=== PATIENT | male | born 1995 | race African-American/Black ===

== ENCOUNTER 2017-01-15 02:45 | Emergency (ER) | payer OTHER ==
[~2017-01-15] VITALS: Ht 177.8 cm; Wt 83.5 kg
[~2017-01-15 02:45] MED LIST: BEN50 PO; BENZ1LOZ28 MM; GUAI-47 PO; GUAI-637 PO; IBUP-1542 PO; PEN500 PO; PRED50TA PO; SODI126M NASAL
[2017-01-15 02:49] VITALS: Ht 177.8 cm; Wt 83.5 kg
[2017-01-15] MEDS ORDERED: OFLO5DRO7 BOTH EARS (03:50)
[2017-01-15] MEDS ORDERED: IBUP800T25 PO (03:50)
--- NOTE | 2017-01-15 03:55 | ERD ---
ER Documentation Chief Complaint Date/Time DATE: 01/15/17 TIME: 03:51 Chief Complaint left ear pain started several days ago HPI 22-year-old male complaining of bilateral ear pain times a few hours. The pain is much worse on the left, he complains that unable to hear from the left ear. He took Tylenol previous afternoon. Denies fever or chills. Denies nasal congestion. Denies ear drainage. Denies recent swimming. Denies ear trauma. ROS All systems reviewed and are negative except as per history of present illness. Medications Home Meds Active Scripts Ibuprofen* (Motrin*) 800 Mg Tab, 800 MG PO Q6H Y for PAIN AND OR ELEVATED TEMP, #30 TAB Prov:ADWOA ELDRIDGE NP 01/15/17 Ofloxacin Otic (Ofloxacin Otic) 5 Ml Drops, 5 DROP BOTH EARS DAILY for 7 Days, # 1 BOTTLE Prov:ADWOA ELDRIDGE NP 01/15/17 Prednisone* (Prednisone*) 50 Mg Tablet, 50 MG PO DAILY for 5 Days, TAB Prov:ARLIN CASAS NP 05/12/16 Diphenhydramine Hcl* (Benadryl*) 50 Mg Cap, 50 MG PO Q6H Y for ITCHING/RASH, # 30 CAP Prov:ARLIN CASAS NP 05/12/16 Guaifenesin* (Robitussin*) 100 Mg/5 Ml Syrup, 200 MG PO Q4H Y for COUGH, #120 ML Prov:ADWOA ELDRIDGE NP 03/06/16 Sodium Chloride (Saline Nasal Mist) 126 Ml Mist, 2 SPRAY NASAL Q2H Y for NASAL CONGESTION, #1 BOTTLE Prov:ADWOA ELDRIDGE NP 03/06/16 Penicillin V Potassium* (Penicillin V K*) 500 Mg Tab, 500 MG PO BID for 10 Days , TAB Prov:ADWOA ELDRIDGE NP 03/06/16 Ibuprofen* (Motrin*) 600 Mg Tab, 600 MG PO Q6H Y for PAIN AND OR ELEVATED TEMP, #30 TAB Prov:ADWOA ELDRIDGE NP 03/06/16 Benzocaine/Menthol ([facility] SORE THROAT LOZENGE) 1 Each Lozenge, 1 EACH MM Q2H for 10 Days, LOZENGE Prov:MELINDA PACHECO NP 08/27/15 Guaifenesin-Dextromethorphan* (Mucinex* DM) 600-30 Mg Tabsr, 2 TAB PO BID for 10 Days, TAB Prov:MELINDA PACHECO I. BUILDING COMPONENTS DESIGNER 08/27/15 Allergies Allergies: Coded Allergies: No Known Allergy (Unverified , 04/25/13) PMhx/Soc Medical and Surgical Hx: pt denies Medical Hx, pt denies Surgical Hx History of Surgery: No Anesthesia Reaction: No Hx Neurological Disorder: No Hx Respiratory Disorders: No Hx Cardiac Disorders: No Hx Psychiatric Problems: No Hx Miscellaneous Medical Probl: No Hx Alcohol Use: No Hx Substance Use: No (MARIJUANA) Hx Tobacco Use: No Physical Exam Vitals Vital Signs Date Time Temp Pulse Resp B/P Pulse Ox O2 Delivery O2 Flow Rate FiO2 01/15/17 02:49 98.5 80 20 143/70 98 Physical Exam General: Well-developed, well-nourished, conscious and coherent, in no distress Skin: Warm and dry without rash, good texture and turgor Head: Normocephalic without evidence of trauma Eyes: Sclera and conjunctivae normal; pupils equal, round, and reactive to light; extraocular movements are intact Ears: Bilateral tragal tenderness. Canals are erythematous bilaterally. Tympanic membranes are erythematous without bulging. No mastoid tenderness. Nose/Face: Without rhinorrhea Mouth/throat: Mucous membranes are moist. Posterior pharynx clear without erythema or exudates Neck: Supple without meningismus or adenopathy. Carotids are equal. Trachea midline. No bruits or JVD Chest: Normal AP diameter. Good expansion without retractions. Nontender. Lungs are clear to auscultate bilaterally with good tidal volume Heart: Regular rate and rhythm. No murmur, rub, or gallops heard Abdomen: Soft and nontender without masses, guarding, or rebound. Bowel sounds are active. No hepatosplenomegaly Extremities: Full range of motion. Good strength bilaterally. No clubbing, cyanosis, or edema. Peripheral pulses are intact. Sensation intact Neuro: Alert and oriented 4, GCS 15. Cranial nerves grossly intact. Motor and sensory exams nonfocal. Moves all extremities. Speech clear. Gait normal Results 24 hrs Current Medications Medications (Trade) Dose Ordered Sig/Gayle Route PRN Reason Start Time Stop Time Status Last Admin Dose Admin Ibuprofen (Motrin) 800 mg ONCE ONCE PO 01/15/17 04:00 01/15/17 04:01 Procedures/MDM Well-appearing 22-year-old male present ED was ear pain. Exam reveals erythematous ear canals bilaterally, with bilateral tragal tenderness. This is highly suggestive of acute otitis externa. I doubt effective otitis media or mastoiditis Ibuprofen given to the patient in the ED for pain. Patient appears well, stable for discharge and outpatient management. Medical decision making shared with patient and family. Education provided to patient and family. Patient and family expressed understanding of the plan. Medications on discharge: Ofloxacin otic, ibuprofen. Follow-up: Primary care provider in 2-3 days or return to ED if worse. Disclaimer: Inadvertent spelling and grammatical errors are likely due to EHR/ dictation software use and do not reflect on the overall quality of patient care. Also, please note that the electronic time recorded on this note does not necessarily reflect the actual time of the patient encounter. Departure Diagnosis: Primary Impression: Otitis externa Otitis externa type: unspecified type Laterality: bilateral Chronicity: acute Qualified Code: H60.503 - Acute otitis externa of both ears, unspecified type Condition: Good Patient Instructions: External Ear Infection (Adult) Additional Instructions: Call your primary care doctor TOMORROW for an appointment during the next 2-3 days.See the doctor sooner or return here if your condition worsens before your appointment time. ADWOA ELDRIDGE NP Jan 15, 2017 03:55
[2017-01-15] MEDS ORDERED: IBUPROFEN 800 MG TAB PO ONE (04:00)
== END 2017-01-15 04:04 | disposition home or self-care (01) ==
LOC: FTE 02:45
DX: H60.503 Unspecified acute noninfective otitis externa, bilateral (principal)
CPT/HCPCS: 99283

== ENCOUNTER 2017-05-16 02:44 | Emergency (ER) | payer OTHER ==
[~2017-05-16] VITALS: Ht 185.4 cm; Wt 91.3 kg
[~2017-05-16 02:44] MED LIST changes: +IBUP800T25 PO; +OFLO5DRO7 BOTH EARS; -PEN500 PO; +PENI500T PO
[2017-05-16 02:51] VITALS: Ht 185.4 cm; Wt 91.3 kg
--- NOTE | 2017-05-16 06:27 | RADRPT ---
PROCEDURE: Cervical spine. CLINICAL INDICATION: Neck pain. TECHNIQUE: 4 views including AP, lateral and odontoid views of the cervical spine were performed. The images were reviewed on a PACS workstation. COMPARISON: None. FINDINGS: There is no acute fracture or subluxation. Cervical vertebral body heights and alignment are within normal limits. Intervertebral disk spaces are within normal limits. The visualized dens and later al masses are unremarkable. Prevertebral soft tissues are unremarkable. IMPRESSION: No acute fracture or subluxation. .Prudencio Wallace MD, Date Time Electronically viewed and signed by .Prudencio Wallace MD, on 05/16/2017 06:26 .T/
--- NOTE | 2017-05-16 06:27 | RADRPT ---
PROCEDURE: Lumbar spine. CLINICAL INDICATION: Low back pain. TECHNIQUE: Three views including AP, lateral and cone-down lateral view of the lumbar spine were obtained. COMPARISON: None. FINDINGS: There is no acute fracture or subluxation. Lumbar vertebral body heights and alignment are within n ormal limits. Intervertebral disk spaces are within normal limits. The posterior elements are unre markable. IMPRESSION: No evidence of fracture or subluxation. .Prudencio Wallace MD, MD Date Time Electronically viewed and signed by .Prudencio Wallace MD, on 05/16/2017 06:27 .T/
--- NOTE | 2017-05-16 06:28 | RADRPT ---
PROCEDURE: Left tibia and fibula. CLINICAL INDICATION: Pain. TECHNIQUE: 4 views including AP and lateral views of the left tibia and fibula were obtained. COMPARISON: None. FINDINGS: There is no fracture, dislocation or bone destruction. The joint spaces are within normal limits. Bone mineralization is within normal limits. There is no radiopaque foreign body or abnormal calcif ication. IMPRESSION: No evidence of fracture. .Prudencio Wallace MD, MD Date Time Electronically viewed and signed by .Prudencio Wallace MD, on 05/16/2017 06:27 .T/
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
[2017-05-16] MEDS ORDERED: ACET500C5 PO (06:32)
[2017-05-16] MEDS ORDERED: BACL10TA PO (06:33)
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
== END 2017-05-16 06:47 | disposition home or self-care (01) ==
LOC: FTE 02:44
DX: M54.5 Low back pain (principal); M25.562 Pain in left knee; M79.652 Pain in left thigh
CPT/HCPCS: 72040; 72100; 73562; 73590; Z7502